=== PATIENT | male | born 1945 | race Caucasian/White ===

== ENCOUNTER 2018-01-24 09:44 | Emergency (ER) | payer MEDICARE ==
[~2018-01-24] VITALS: Ht 172.7 cm; Wt 80.0 kg
[2018-01-24 09:49] VITALS: BP 141/68; PULSE 86; RESP 16; TEMP 97.6; O2SAT 98
[2018-01-24] MEDS ORDERED: HYDR12.56 PO (09:59)
[2018-01-24] MEDS ORDERED: AMLO5TAB2 PO (09:59)
[2018-01-24] MEDS ORDERED: DILA100C PO ×2 (09:59)
[2018-01-24] MEDS ORDERED: BENA40TA PO (09:59)
[2018-01-24] MEDS ORDERED: SODIUM CHLOR 0.9% 1000 ML INJ 1,000 ML IV SCH (10:02)
[2018-01-24 10:14] VITALS: BP 127/66; PULSE 84; RESP 18; O2SAT 97
[2018-01-24] MEDS ORDERED: ONDANSETRON HCL 4 MG/2 ML VIAL IVP ONE (10:15)
[2018-01-24] MEDS ORDERED: SODIUM CHLORIDE 0.9% FLUSH 10 ML FLUSH IV FLUSH PRN (10:15)
[2018-01-24 10:34] LABS: AUTOMATED NEUTROPHIL # 10.9 TH/MM3 (1.8-7.7); BASOPHIL # 0.2 TH/MM3 (0-0.2); BASOPHIL % 2.1 % (0.0-2.0); CHLORIDE 105 MEQ/L (98-107); EOSINOPHIL % 0.4 % (0.0-4.0); HEMATOCRIT 43.6 % (39.0-51.0); HEMOGLOBIN 14.8 GM/DL (13.0-17.0); LYMPH % 2.4 % (9.0-44.0); LYMPHOCYTE # 0.3 TH/MM3 (1.0-4.8); MEAN CELL VOLUME 96.6 FL (80.0-100.0); MEAN CORPUSCULAR HEMOGLOBIN 32.7 PG (27.0-34.0); MEAN CORPUSCULAR HGB CONC 33.9 % (32.0-36.0); MEAN PLATELET VOLUME 7.3 FL (7.0-11.0); MONO % 3.4 % (0.0-8.0); MONOCYTE # 0.4 TH/MM3 (0-0.9); NEUT % 91.7 % (16.0-70.0); PLATELET COUNT 224 TH/MM3 (150-450); RED BLOOD COUNT 4.52 MIL/MM3 (4.50-5.90); RED CELL DISTRIBUTION WIDTH 12.3 % (11.6-17.2); SODIUM (NA) 140 MEQ/L (136-145); WHITE BLOOD COUNT 11.8 TH/MM3 (4.0-11.0)
[2018-01-24 10:36] LABS: ALBUMIN 3.7 GM/DL (3.4-5.0); BICARBONATE 25.5 MEQ/L (21.0-32.0); BLOOD UREA NITROGEN 22 MG/DL (7-18); GLUCOSE,RANDOM 132 MG/DL (74-106)
[2018-01-24 10:39] LABS: ALT (GPT) 32 U/L (12-78); AST (GOT) 20 U/L (15-37); CREATININE 0.81 MG/DL (0.60-1.30); GLOMERULAR FILTRATION RATE 94 ML/MIN (>89)
[2018-01-24 10:40] LABS: TOTAL BILIRUBIN ADULT 0.4 MG/DL (0.2-1.0)
[2018-01-24 10:42] LABS: ALKALINE PHOSPHATASE 80 U/L (45-117)
--- NOTE | 2018-01-24 10:46 | PD ---
HPI Chief Complaint: GI Complaint Time Seen by Provider: 09:51 Travel History International Travel<30 days: No Contact w/Intl Traveler<30days: No Traveled to known affect area: No History of Present Illness HPI 72-year-old male arrives to the ER complaining of nausea vomiting and diarrhea which started at around midnight last night, about 9 hours prior to ER arrival. He reports at least 2 episodes of each per hour. No blood was seen. He denies fever. He denies pain in the abdomen. He reports eating potato salad about 12 hours prior to onset of symptoms. The salad tasted normal form and he denies abnormal food otherwise. He reports this is uncommon for him. PFSH Past Medical History Diminished Hearing: No Hypertension: Yes Seizures: Yes Influenza Vaccination: Yes Social History Alcohol Use: No Tobacco Use: No Allergies-Medications (Allergen,Severity, Reaction): Coded Allergies: vancomycin (Verified Allergy, Unknown, 01/24/18) Reported Meds & Prescriptions Reported Meds & Active Scripts Active Lomotil (Diphenoxylate-Atropine) 2.5-0.025 Mg Tab 2 Tab PO Q6H PRN 5 Days Zofran Odt (Ondansetron Odt) 4 Mg Tab 4 Mg SL Q8HR PRN Reported Dilantin (Phenytoin Extended) 100 Mg Cap 350 Mg PO Dilantin (Phenytoin Extended) 100 Mg Cap 400 Mg PO EVERY OTHER DAY Hydrochlorothiazide 12.5 Mg Tab 12.5 Mg PO DAILY Benazepril (Benazepril HCl) 40 Mg Tab 40 Mg PO DAILY Amlodipine (Amlodipine Besylate) 5 Mg Tab 5 Mg PO DAILY Review of Systems Except as stated in HPI: all other systems reviewed are Neg Physical Exam Narrative GENERAL: 72-year-old male pleasant well-nourished well-developed no acute distress Vital Signs Date Time Temp Pulse Resp B/P (MAP) Pulse Ox O2 Delivery O2 Flow Rate FiO2 01/24/18 10:14 84 18 127/66 (86) 97 Room Air 01/24/18 09:49 97.6 86 16 141/68 (92) 98 SKIN: Warm and dry. HEAD: Atraumatic. Normocephalic. EYES: Pupils equal and round. No scleral icterus. No injection or drainage. ENT: No nasal bleeding or discharge. Mucous membranes pink and moist. NECK: Trachea midline. No JVD. CARDIOVASCULAR: Regular rate and rhythm. RESPIRATORY: No accessory muscle use. Clear to auscultation. Breath sounds equal bilaterally. GASTROINTESTINAL: Abdomen is soft. There is no distention. No focus of tenderness. MUSCULOSKELETAL: Extremities without clubbing, cyanosis, or edema. No obvious deformities. NEUROLOGICAL: Awake and alert. No obvious cranial nerve deficits. Motor grossly within normal limits. Five out of 5 muscle strength in the arms and legs. Normal speech. PSYCHIATRIC: Appropriate mood and affect; insight and judgment normal. Data Data Last Documented VS Vital Signs Date Time Temp Pulse Resp B/P (MAP) Pulse Ox O2 Delivery O2 Flow Rate FiO2 01/24/18 12:20 83 18 146/65 (92) 96 Room Air 01/24/18 09:49 97.6 Orders Orders Complete Blood Count With Diff (01/24/18 10:02) Comprehensive Metabolic Panel (01/24/18 10:02) Iv Access Insert/Monitor (01/24/18 10:02) Ecg Monitoring (01/24/18 10:02) Oximetry (01/24/18 10:02) Ondansetron Inj (Zofran Inj) (01/24/18 10:15) Sodium Chlor 0.9% 1000 Ml Inj (Ns 1000 M (01/24/18 10:02) Sodium Chloride 0.9% Flush (Ns Flush) (01/24/18 10:15) Ct Abd/Pel W Iv Contrast(Rout) (01/24/18 11:19) Iohexol 350 Inj (Omnipaque 350 Inj) (01/24/18 12:10) Ed Discharge Order (01/24/18 12:44) Labs Laboratory Tests Test 01/24/18 10:08 White Blood Count 11.8 TH/MM3 Red Blood Count 4.52 MIL/MM3 Hemoglobin 14.8 GM/DL Hematocrit 43.6 % Mean Corpuscular Volume 96.6 FL Mean Corpuscular Hemoglobin 32.7 PG Mean Corpuscular Hemoglobin Concent 33.9 % Red Cell Distribution Width 12.3 % Platelet Count 224 TH/MM3 Mean Platelet Volume 7.3 FL Neutrophils (%) (Auto) 91.7 % Lymphocytes (%) (Auto) 2.4 % Monocytes (%) (Auto) 3.4 % Eosinophils (%) (Auto) 0.4 % Basophils (%) (Auto) 2.1 % Neutrophils # (Auto) 10.9 TH/MM3 Lymphocytes # (Auto) 0.3 TH/MM3 Monocytes # (Auto) 0.4 TH/MM3 Eosinophils # (Auto) 0.0 TH/MM3 Basophils # (Auto) 0.2 TH/MM3 CBC Comment AUTO DIFF Differential Total Cells Counted 100 Neutrophils % (Manual) 82 % Band Neutrophils % 14 % Lymphocytes % 2 % Monocytes % 2 % Neutrophils # (Manual) 11.3 TH/MM3 Differential Comment FINAL DIFF MANUAL Platelet Estimate NORMAL Platelet Morphology Comment NORMAL Red Cell Morphology Comment NORMAL Blood Urea Nitrogen 22 MG/DL Creatinine 0.81 MG/DL Random Glucose 132 MG/DL Total Protein 7.0 GM/DL Albumin 3.7 GM/DL Calcium Level 8.0 MG/DL Alkaline Phosphatase 80 U/L Aspartate Amino Transf (AST/SGOT) 20 U/L Alanine Aminotransferase (ALT/SGPT) 32 U/L Total Bilirubin 0.4 MG/DL Sodium Level 140 MEQ/L Potassium Level 4.1 MEQ/L Chloride Level 105 MEQ/L Carbon Dioxide Level 25.5 MEQ/L Anion Gap 10 MEQ/L Estimat Glomerular Filtration Rate 94 ML/MIN [facility] Medical Decision Making Medical Screen Exam Complete: Yes Emergency Medical Condition: Yes Medical Record Reviewed: Yes Differential Diagnosis Constipation, Gastritis, Acute Cholecystitis, Biliary Colic, Pancreatitis, VALDOVINOS , Hepatitis, Bowel Obstruction, Cystitis, Mesenteric Ischemia, AAA, Appendicitis , Renal Stone/Hydronephrosis, GERD, perforated viscous Narrative Course CBC & BMP Diagram 01/24/18 10:08 Total Protein 7.0, Albumin 3.7, Calcium Level 8.0 L, Alkaline Phosphatase 80, Aspartate Amino Transf (AST/SGOT) 20, Alanine Aminotransferase (ALT/SGPT) 32, Total Bilirubin 0.4 Band neutrophils and 14% Last Impressions Abdomen/Pelvis CT 01/24/18 1119 Signed Impressions: Service Date/Time: Wednesday, January 24, 2018 11:59 - CONCLUSION: 1. No acute findings in the abdomen and pelvis. 2. Colonic diverticulosis. 3. Degenerative findings lumbar spine. 4. Fat-containing periumbilical hernia. Uriel Luis MD Patient has rested comfortably in the ER for about 3 hours. We'll send him home with Zofran and Lomotil. CT scan reassuring despite the presence of significant bandemia on CT. Diagnosis Primary Impression: Nausea vomiting and diarrhea Additional Impression: Bandemia Referrals: Primary Care Physician 2 days Med/Other Pt SpecificInfo: Prescription(s) given Scripts Diphenoxylate-Atropine (Lomotil) 2.5-0.025 Mg Tab 2 TAB PO Q6H Y for DIARRHEA for 5 Days, #12 TAB 0 Refills Prov: Bob Claros MD 01/24/18 Ondansetron Odt (Zofran Odt) 4 Mg Tab 4 MG SL Q8HR Y for Nausea/Vomiting, #10 TAB 0 Refills Prov: Bob Claros MD 01/24/18 Disposition: 01 DISCHARGE HOME Condition: Stable Bob Claros MD Jan 24, 2018 10:46
[2018-01-24 11:14] LABS: BANDS 14 % (0-6); LYMPHOCYTES 2 % (9-44); MONOCYTES 2 % (0-8); NEUTROPHIL # MANUAL DIFF 11.3 TH/MM3 (1.8-7.7); POLYS (SEG NEUTROPHILS) 82 % (16-70)
[2018-01-24] MEDS ORDERED: ZOFR4TAB3 SL (11:39)
[2018-01-24] MEDS ORDERED: LOMO2.5T PO (11:39)
[2018-01-24] MEDS ORDERED: IOHEXOL 350 MG/ML 10 ML VIAL (for RAD DIAG) IVCONTRAST ONE (12:10)
[2018-01-24 12:20] VITALS: BP 146/65; PULSE 83; RESP 18; O2SAT 96
--- NOTE | 2018-01-24 12:41 | RADRPT ---
EXAM DATE/TIME: 01/24/2018 11:59 [facility] COMPARISON: No previous studies available for comparison. INDICATIONS : Nausea, vomiting, diarrhea since last night. IV CONTRAST: 75 cc Omnipaque 350 (iohexol) IV ORAL CONTRAST: No oral contrast ingested. RADIATION DOSE: 12.17 CTDIvol (mGy) MEDICAL HISTORY : Hypertension. Seizures. SURGICAL HISTORY : None. Orthopedic ENCOUNTER: Initial ACUITY: 1 day PAIN SCALE: 0/10 LOCATION: diffuse abdomen TECHNIQUE: Volumetric scanning of the abdomen and pelvis was performed. Using automated exposure control and ad justment of the mA and/or kV according to patient size, radiation dose was kept as low as reasonably achievable to obtain optimal diagnostic quality images. DICOM format image data is available electro nically for review and comparison. FINDINGS: LOWER LUNGS: Mild atelectasis at the lung bases. LIVER: Homogeneous density without lesion. There is no dilation of the biliary tree. No calcified gallston es. SPLEEN: Normal size without lesion. PANCREAS: Within normal limits. KIDNEYS: Normal in size and shape. There is no mass, stone or hydronephrosis. ADRENAL GLANDS: Within normal limits. VASCULAR: There is no aortic aneurysm. BOWEL/MESENTERY: Numerous colonic diverticula concentrated in the sigmoid region. No inflammatory changes to suggest a cute diverticulitis. Appendix within normal limits. No evidence of bowel dilatation. No free air or f ree fluid. ABDOMINAL WALL: 1.9 cm periumbilical fat-containing hernia RETROPERITONEUM: There is no lymphadenopathy. BLADDER: No wall thickening or mass. REPRODUCTIVE: Within normal limits. INGUINAL: There is no lymphadenopathy or hernia. MUSCULOSKELETAL: Degenerative findings lower lumbar spine facet joints. CONCLUSION: 1. No acute findings in the abdomen and pelvis. 2. Colonic diverticulosis. 3. Degenerative findings lumbar spine. 4. Fat-containing periumbilical hernia. Uriel Luis MD on January 24, 2018 at 12:34 Board Certified Radiologist. This report was verified electronically.
== END 2018-01-24 13:08 | disposition home or self-care (01) ==
LOC: PHED 09:44
DX: R11.2 Nausea with vomiting, unspecified (principal); D72.825 Bandemia; R19.7 Diarrhea, unspecified; I10 Essential (primary) hypertension; G40.909 Epilepsy, unspecified, not intractable, without status epilepticus
CPT/HCPCS: 74177; 80053; 85007; 85027; 96361; 96374; 99284; J2405; J7030; Q9967